=== PATIENT | male | born 1970 | race Caucasian/White ===

== ENCOUNTER 2022-06-30 15:17 | Emergency (ER) | payer OTHER ==
[2022-06-30 15:38] VITALS: BP 103/68; PULSE 77; RESP 16; TEMP 98.1; BMI 29.2
[2022-06-30] MEDS ORDERED: FLUORESCEIN NA 1 EA STRIP OD ONE (16:29)
[2022-06-30] MEDS ORDERED: TETRACAINE 0.5% HCL 0.6ML DROPPER.BOTTLE OD ONE (16:29)
[2022-06-30] MEDS ORDERED: TETRACAINE 0.5% OPHTH SOLN 2 ML BOTTLE ONE (16:38)
[2022-06-30] MEDS ORDERED: FLUORESCEIN NA 1 EA STRIP ONE (16:38)
== END 2022-06-30 16:54 | disposition home or self-care (01) ==
LOC: JERFT 15:17
DX: S05.02XA Injury of conjunctiva and corneal abrasion without foreign body, left eye, initial encounter (principal); W45.8XXA Other foreign body or object entering through skin, initial encounter; Y93.H2 Activity, gardening and landscaping
CPT/HCPCS: 99283-25